=== PATIENT | male | born 1950 | race Two or more races ===

== ENCOUNTER 2016-11-09 10:48 | Emergency (ER) | payer MEDICARE, MEDICAID ==
[~2016-11-09] VITALS: Ht 165.1 cm; Wt 90.7 kg
[2016-11-09 12:09] VITALS: BP 147/98
[2016-11-09] MEDS ORDERED: LIDOCAINE 1% HCL (LOCAL ANESTH.) INJ 20ML MDV ONE (12:31)
[2016-11-09] MEDS ORDERED: KETOROLAC TROMETH 60MG/2ML VIAL IM ONE (13:00)
[2016-11-09] MEDS ORDERED: cefTRIAXone SOD 1,000 MG VL IM ONE (13:00)
[2016-11-09] MEDS ORDERED: TETANUS-DIPTH-ACEL PERTUSSIS 0.5ML SYRG IM ONE (13:00)
[2016-11-09] MEDS ORDERED: LIDOCAINE 1% HCL (LOCAL ANESTH.) INJ 20ML MDV IJ ONE (13:15)
[2016-11-09] MEDS ORDERED: BACITRACIN TOP OINT 1 UD PKG TOP ONE (13:30)
== END 2016-11-09 13:36 | disposition home or self-care (01) ==
LOC: ER 10:50
DX: S91.311A Laceration without foreign body, right foot, initial encounter (principal); Z23 Encounter for immunization; W26.0XXA Contact with knife, initial encounter; Y93.89 Activity, other specified; Y99.8 Other external cause status; Y92.89 Other specified places as the place of occurrence of the external cause
CPT/HCPCS: 12044; 73630; 90471; 90715; 96372; 99284; J0696; J1885; J2001